=== PATIENT | male | born 1965 | race Caucasian/White ===

== ENCOUNTER 2020-05-11 18:34 | Emergency (ER) | payer OTHER, SELFPAY ==
[2020-05-11 18:49] VITALS: BP 137/89; PULSE 79; RESP 18; TEMP 36.4; O2SAT 92; BMI 28.4
[2020-05-11 19:02] VITALS: BP 134/89; O2SAT 93
--- NOTE | 2020-05-11 19:15 | CTR_ITS ---
PROCEDURE INFORMATION: Exam: CT Cervical Spine Without Contrast Exam date and time: 05/11/2020 7:54 PM Age: 54 years old Clinical indication: Injury or trauma; Blunt trauma; Injury details: Fall out of tree stand TECHNIQUE: Imaging protocol: Computed tomography images of the cervical spine without contrast. Radiation optimization: All CT scans at this facility use at least one of these dose optimization techniques: automated exposure control; mA and/or kV adjustment per patient size (includes targeted exams where dose is matched to clinical indication); or iterative reconstruction. COMPARISON: No relevant prior studies available. RADIATION DOSE METRICS: Total DLP (mGy-cm): 648.99 FINDINGS: Bones/joints: No visible fracture, subluxation, or dislocation. Discs/Spinal canal/Neural foramina: Degenerative disc disease with disc space height loss and associated spondylosis deformans C3/C4. Mild posterior disc bulge not resulting in significant central canal stenosis or neural foraminal stenosis. Soft tissues: Unremarkable. Lungs: Limited assessment lung apices reveals evidence of antecedent granulomatous disease. CT/CT cervical spin wo con* [id number] IMPRESSION: No visible acute osseous abnormality. Radiation Dose CTDIVOL = (mGy): DLP = 648.99 (mGy-cm)
--- NOTE | 2020-05-11 19:15 | CTR_ITS ---
PROCEDURE INFORMATION: Exam: CT Chest With Contrast Exam date and time: 05/11/2020 7:54 PM Age: 54 years old Clinical indication: Injury or trauma; Generalized; Blunt trauma (contusions or hematomas); Injury details: Fall out of tree stand TECHNIQUE: Imaging protocol: Computed tomography of the chest with intravenous contrast. Radiation optimization: All CT scans at this facility use at least one of these dose optimization techniques: automated exposure control; mA and/or kV adjustment per patient size (includes targeted exams where dose is matched to clinical indication); or iterative reconstruction. Contrast material: OMNI 300; Contrast volume: 95 ml; Contrast route: INTRAVENOUS (IV); COMPARISON: No relevant prior studies available. RADIATION DOSE METRICS: Total DLP (mGy-cm): 1968.02 FINDINGS: Lungs: Streaky densities at the lung bases are most consistent with scarring and/or atelectasis. There are pulmonary parenchymal calcifications consistent with remote granulomatous organism exposure. Pleural space: Trace right pleural fluid. No pneumothorax. Heart: Unremarkable. No cardiomegaly. No pericardial effusion. Aorta: Unremarkable. No aortic aneurysm. Lymph nodes: Unremarkable. No enlarged lymph nodes. Bones/joints: There are acute fractures through the right 3rd through 7th ribs. Mild displacement across the right 4th through 7th rib fractures. Hematoma and emphysema is present in the adjacent soft tissues. There are changes in the visualized spine. Soft tissues: See Bones/joints finding. IMPRESSION: There acute fractures through the right 3rd through 7th ribs with adjacent soft tissue hematoma and emphysema. PROCEDURE INFORMATION: Exam: CT Abdomen And Pelvis With Contrast Exam date and time: 05/11/2020 7:54 PM Age: 54 years old Clinical indication: Injury or trauma; Generalized; Blunt trauma (contusions or hematomas); Injury details: Fall out of tree stand TECHNIQUE: Imaging protocol: Computed tomography of the abdomen and pelvis with intravenous contrast. Radiation optimization: All CT scans at this facility use at least one of these dose optimization techniques: automated exposure control; mA and/or kV adjustment per patient size (includes targeted exams where dose is matched to clinical indication); or iterative reconstruction. Contrast material: OMNI 300; Contrast volume: 95 ml; Contrast route: INTRAVENOUS (IV); COMPARISON: No relevant prior studies available. RADIATION DOSE METRICS: Total DLP (mGy-cm): FINDINGS: Lungs: Please see the CT scan of the thorax for description of the lung bases. Liver: Normal. No mass. Gallbladder and bile ducts: Normal. No calcified stones. No ductal dilation. Pancreas: Normal. No ductal dilation. Spleen: Normal. No splenomegaly. Adrenal glands: Normal. No mass. Kidneys and ureters: Multiple bilateral subcentimeter renal cysts with benign features. Follow-up is not necessary. Stomach and bowel: Unremarkable. No obstruction. No mucosal thickening. Appendix: A normal appendix is identified. Intraperitoneal space: Unremarkable. No free air. No significant fluid collection. Vasculature: Unremarkable. No abdominal aortic aneurysm. Lymph nodes: Unremarkable. No enlarged lymph nodes. Urinary bladder: Unremarkable as visualized. Reproductive: Unremarkable as visualized. Bones/joints: There are degenerative changes in the visualized spine. 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 Soft tissues: Unremarkable. 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 Please see the CT scan of the thorax impression for description of the right rib fractures. COMMENTS: Consistent with the [employer]'s Incidental Findings Committee white paper (J Am Landy Radiol 2018): Any incidental renal lesion less than 1 cm or classified as too small to characterize, or any incidental cystic renal lesion characterized as simple-appearing, is likely benign. No follow-up imaging is recommended for these lesions per consensus recommendations based on imaging criteria. Radiation Dose CTDIVOL = (mGy): DLP = 1967.~ (mGy-cm)
--- NOTE | 2020-05-11 19:15 | CTR_ITS ---
PROCEDURE INFORMATION: Exam: CT Head Without Contrast Exam date and time: 05/11/2020 7:54 PM Age: 54 years old Clinical indication: Injury or trauma; Blunt trauma (contusions or hematomas); Without loss of consciousness; Injury details: Fall out of tree stand this am TECHNIQUE: Imaging protocol: Computed tomography of the head without contrast. Radiation optimization: All CT scans at this facility use at least one of these dose optimization techniques: automated exposure control; mA and/or kV adjustment per patient size (includes targeted exams where dose is matched to clinical indication); or iterative reconstruction. COMPARISON: No relevant prior studies available. RADIATION DOSE METRICS: Total DLP (mGy-cm): 820.92 FINDINGS: Brain: Normal. No hemorrhage. Unremarkable white matter. No mass effect. Cerebral ventricles: No ventriculomegaly. Bones/joints: Unremarkable. No acute fracture. Paranasal sinuses: Visualized sinuses are unremarkable. No fluid levels. Mastoid air cells: Visualized mastoid air cells are well aerated. Soft tissues: Unremarkable. CT/CT head wo con* [id number] IMPRESSION: No acute intracranial abnormality. Radiation Dose CTDIVOL = (mGy): DLP = 820.92 (mGy-cm)
--- NOTE | 2020-05-11 19:24 | ED_ITS ---
HPI - Fall General: Chief Complaint: Fall Stated Complaint: UPPER BODY INJURIES/FELL OUT OF TREE STAND Time Seen by Provider: 05/11/20 19:02 History of Present Illness: HPI Narrative: 54-year-old gentleman who fell out of a tree stand earlier today. He was seen at an outside facility, and had multiple x-rays. He was told he had multiple rib fractures on the right, had his shoulder on the right, and fractured his left wrist. He complains of pain. They did not do any CT scans at that facility. They told the gentleman that they would transfer him to a trauma center, but that none of the trauma centers were taking patients and so they discharged him and told him to drive to a trauma center. He came here instead hoping to get care. MD complaint: fall Onset (ago): hour(s) Fall from: from height (distance) Fall witnessed: no Place fall occurred: other Loss of consciousness: None Prolonged down time: no Symptoms prior to fall: none Location of injury: chest Location of injury - extremities: Left: forearm and Right: shoulder Severity: moderate Quality: stabbing and aching Associated symptoms-after fall: Reports chest pain; Denies abdominal pain, confusion, difficulty walking, headache(s), hematuria, neck pain, short of breath or weakness Review of Systems Const: Denies: fever(s) Eyes: Denies: change in vision ENMT: Denies: odynophagia Card: Reports: chest pain; Denies: palpitations or irregular heart rhythm Resp: Denies: dyspnea, productive cough, non-productive cough or wheezing GI: Denies: abdominal pain, nausea or vomiting : Denies: difficulty urinating or hematuria Musc: Denies: neck pain or back pain Skin/Breast: Reports: rash Neuro: Denies: headache(s), difficulty walking or confusion Psych: Denies: anxiety Physical Exam Const: GENERAL APPEARANCE: well developed ORIENTATION/CONSCIOUSNESS: Yes oriented to person, Yes oriented to place and Yes oriented to time HENMT: COMMON NORMALS: normocephalic, external ears normal and Normal external nose present HEAD & SCALP: normocephalic; no scalp tenderness FACE & SINUS: normal facial exam NOSE: Normal external nose present and No nasal discharge present EXTERNAL EAR: Yes external ears normal Eye: COMMON NORMALS: Equal, round and reactive pupils present, EOMs intact bilaterally and conjunctivae normal EYELID: eyelids normal CONJUNCTIVA: Yes conjunctivae normal PUPIL: Yes Equal, round and reactive pupils present Neck/C-Spine: COMMON NORMALS: full ROM GENERAL: No tracheal deviation CERVICAL SPINE: Yes normal cervical lordosis and No Cervical spine tenderness Chest: COMMONS NORMALS: normal inspection of the chest CHEST: No tenderness Resp: COMMON NORMALS: clear to auscultation bilaterally EFFORT & INSPECTION: No tachypneic, No respiratory distress, No retractions, No uses accessory muscles and No tracheal deviation AUSCULTATION: clear to auscultation bilaterally, no rhonchi, no wheezes and lung sounds not diminished Cardio: COMMON NORMALS: regular rate and regular rhythm RATE: regular rate RHYTHM: regular rhythm HEART SOUNDS: no murmurs PERIPHERAL PULSES: r adial pulses present GI: INSPECTION: No abdominal distension AUSCULTATION: No Hyperactive bowel sounds present and No Hypoactive bowel sounds present PALPATION: No Guarding due to palpation present (GI) and No Rigid due to palpation PERCUSSION: no dullness to percussion and no tympanic to percussion Extremity: NARRATIVE EXTREMITY EXAM: Right shoulder superior deformity consistent with AC separation. There is tenderness to palpation. Left forearm is wrapped in a sugar tong splint. Neuro: SENSORIUM/ORIENTATION: Yes oriented to person, Yes oriented to place and Yes oriented to time Psych: COMMON NORMALS: mental status grossly normal Skin: COMMON NORMALS: no rashes or lesions noted GENERAL SKIN EXAM: no rashes or lesions noted Course Vital Signs: Vital signs: Vital Signs Temperature 97.6 F 05/11/20 18:49 Pulse Rate 88 05/11/20 20:57 Respiratory Rate 18 05/11/20 20:57 Blood Pressure 131/75 05/11/20 20:57 Pulse Oximetry 94 05/11/20 20:57 MDM - Fall MDM Narrative: Medical decision making narrative: CT scan is negative for lung contusion, pneumothorax, hemothorax, etc. Is also negative for solid organ injury of other kinds. He will be discharged home with his medications prescribed by the outside facility. We will follow-up with orthopedics regarding his right AC joint separation, and left wrist fracture. Discharge Plan Discharge Patient Disposition: Home Clinical Impression: Grade 3 separation of right shoulder Fracture of wrist Qualifiers: Encounter type: initial encounter Fracture type: closed Laterality: left Qualified Code(s): S62.102A - Fracture of unspecified carpal bone, left wrist, initial encounter for closed fracture Closed rib fracture Qualifiers: Encounter type: initial encounter Rib fracture type: multiple ribs Laterality: right Qualified Code(s): S22.41XA - Multiple fractures of ribs, right side, initial encounter for closed fracture Condition: Stable Discharge Orders: Discharge Order (Routine); Ordered 05/11/20 Ordered By: Serge Costa Referrals: Donnie Uribe MD [Physician] - 4-7 days Discharge Diet: Advance as tolerated Discharge Activity: Limit activity as instructed Patient Instructions: Wrist Fracture in Adults (ED), Rib Fracture (ED), Shoulder Activity Restrictions/Additional Instructions: Stay in splint and shoulder immobilizer until seen by orthopedics. Give them a call Wednesday morning, to schedule follow-up this coming week. Your wrist may require surgery to fix. Return for any problems, especially shortness of breath, worsening mental status, weakness, etc. Use the prescriptions you were given at the outside facility. 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
[2020-05-11] MEDS: iohexol 300 mg/mL 100 mL Btl IV (20:05)
[2020-05-11 20:57] VITALS: BP 131/75; PULSE 88; RESP 18; O2SAT 94
== END 2020-05-11 21:17 | disposition home or self-care (01) ==
PROVIDERS: Emergency Provider Emergency Medicine
DX: S22.41XA Multiple fractures of ribs, right side, initial encounter for closed fracture (principal); S43.101A Unspecified dislocation of right acromioclavicular joint, initial encounter; S62.102A Fracture of unspecified carpal bone, left wrist, initial encounter for closed fracture; W14.XXXA Fall from tree, initial encounter
CPT/HCPCS: 12345; 70450; 71260; 72125; 74177; 99282; 99283; Q9967